=== PATIENT | female | born 1985 ===

== ENCOUNTER 2016-09-23 23:54 | Emergency (ER) | payer SELFPAY ==
[2016-09-24 00:13] VITALS: BP 116/78; PULSE 93; RESP 18; TEMP 98; O2SAT 98
--- NOTE | 2016-09-24 00:52 | C.PDOC ---
History Of Present Illness 30 year old female presents to the ED with complaints of a 2cm laceration to the left first metatarsal on the dorsal aspect. Patient states she ran into broken glass two hours prior to arrival and tetanus is not up to date. She denies any numbness or tingling. Time Seen by Provider: 09/24/16 00:07 Chief Complaint (Nursing): Abnormal Skin Integrity History Per: Patient History/Exam Limitations: no limitations Onset/Duration Of Symptoms: Hrs (2 hours prior to arrival ) Current Symptoms Are (Timing): Still Present Location Of Injury: Left: Foot Recent travel outside of the [place]: No Past Medical History Reviewed: Historical Data, Nursing Documentation, Vital Signs Vital Signs: Last Vital Signs Temp 98.0 F 09/24/16 00:03 Pulse 93 H 09/24/16 00:03 Resp 18 09/24/16 00:03 BP 116/78 09/24/16 00:03 Pulse Ox 98 09/24/16 07:44 Family History: States: Unknown Family Hx - Social History Hx Alcohol Use: No Hx Substance Use: No Review Of Systems Constitutional: Negative for: Fever, Chills Gastrointestinal: Negative for: Vomiting Musculoskeletal: Positive for: Foot Pain Neurological: Negative for: Headache Physical Exam - Physical Exam Additional Physical Exam Comments: Constitutional: mildly agitated, talking on phone, WDWN. Head: Normocephalic. Atraumatic. Musculoskeletal: No tenderness or swelling of extremities. Dorsalis pedalis pulses are normal. Good capillary refill, less than two seconds. Full ROM. Skin: No rash. 2 cm horizaontal shallow laceration over proximal 1st right metatarsal joint. Neurologic: Alert, no focal deficit.motor and sensation intact ED Course And Treatment O2 Sat by Pulse Oximetry: 98 (room air ) Laceration - Laceration Repair Left Metatarsal first Wound Length (In cm): 2cm Description Of Wound: Linear Wound Cleansed With: Sterile Saline Wound Examination: No FB With Wound Exploration, No Tendon Injury With Wound Exploration Wound Closure: Skin Glue Wound Complexity: Simple Medical Decision Making Medical Decision Making: pt refusing sutures for laceration. skin glue applied after wound irrigated. Disposition Counseled Patient/Family Regarding: Diagnosis, Need For Followup, Rx Given - Disposition Referrals: [facility] [Outside] Disposition: HOME/ ROUTINE Disposition Time: 00:51 Condition: STABLE Additional Instructions: Wear post op shoe to keep from bending foot so much. Keep area clean and dry. The glue will come off by itself. If wound opens, wash with soap and water, and apply bandage. Instructions: Laceration (ED), Skin Adhesive Care (ED) Forms: Gen Discharge Inst Tongan - Clinical Impression Clinical Impression: Laceration of left foot - Scribe Statement The provider has reviewed the documentation as recorded by the Scribcecy Mina All medical record entries made by the Tashibcecy were at my direction and personally dictated by me. I have reviewed the chart and agree that the record accurately reflects my personal performance of the history, physical exam, medical decision making, and the department course for this patient. I have also personally directed, reviewed, and agree with the discharge instructions and disposition.
== END 2016-09-24 01:11 | disposition home or self-care (01) ==
LOC: C.ER 23:54
DX: S91.112A Laceration without foreign body of left great toe without damage to nail, initial encounter (principal); W25.XXXA Contact with sharp glass, initial encounter; Y93.89 Activity, other specified; Y92.410 Unspecified street and highway as the place of occurrence of the external cause; Z23 Encounter for immunization